=== PATIENT | male | born 1965 | race African-American/Black ===

== ENCOUNTER 2018-02-11 08:39 | Emergency (ER) | payer SELFPAY ==
[2018-02-11] MEDS ORDERED: Ketorolac Tromethamine 60 MG/2 ML VIAL ONE (08:59)
--- NOTE | 2018-02-11 09:53 | RAD ---
FOUR VIEWS LEFT KNEE: DATE: 02/11/18. HISTORY: Left knee pain after falling in a hole. FINDINGS: There is no evidence of a fracture or dislocation. There is a small to moderate size joint effusion. Subcutaneous soft tissue swelling is seen anteriorly at the level of the patellar tendon. IMPRESSION: 1. Moderate-sized joint effusion with soft tissue swelling seen in the region of the patellar tendon . MRI left knee would be helpful for further evaluation. 2. No acute osseous abnormality is seen left knee. POS: [facility]
[2018-02-11] MEDS ORDERED: Lidocaine 1% 20 ML MDV ONE (10:10)
[2018-02-11] MEDS ORDERED: Acetaminophen/Codeine 30-300mg Tablet ONE (10:10)
[2018-02-11 12:43] LABS: BF Color Yellow; Body Fluid Source SYNOVIAL FLUID; Clarity Cloudy/Turbid (Clear); RBC Background Count 0.003; Tube # EDTA; WBC Background Count 0.01
[2018-02-11 12:44] LABS: WBC/NonHematic-Auto 1820 /cumm
[2018-02-11 12:46] LABS: RBC Count-Automated 12000 /cumm
[2018-02-11 14:29] LABS: BF Segmented Neutrophils 44 %; Cell Count Non Hematic 46 %; Lymphocytes 10 %
== END 2018-02-11 11:10 | disposition home or self-care (01) ==
LOC: SCSER 08:39
DX: M25.462 Effusion, left knee (principal); J45.909 Unspecified asthma, uncomplicated; W17.2XXA Fall into hole, initial encounter; Y93.H2 Activity, gardening and landscaping
CPT/HCPCS: 20610; 85060; 89051; 89060; 96372; J1885; J2001

== ENCOUNTER 2019-10-11 18:22 | Emergency (ER) | payer SELFPAY ==
--- NOTE | 2019-10-11 20:19 | RAD ---
Exam: XR Knee Lt 4 View STANDARD HISTORY: Left knee pain after a fall 3 days ago. History of arthritis and gout. COMPARISON: 02/11/2018 FINDINGS: There is a moderate-sized joint effusion seen in the suprapatellar bursa. No acute fracture, dislocation, or other acute osseous abnormality is identified. IMPRESSION: 1. Moderate-sized joint effusion without evidence of a fracture. MRI left knee on a nonemergent basis would be helpful to evaluate for internal derangement.
[2019-10-11] MEDS ORDERED: Ketorolac Tromethamine 60 MG/2 ML VIAL ONE (21:02)
[2019-10-11] MEDS ORDERED: Lidocaine 1% PF 5 ML VIAL ONE (21:31)
[2019-10-11] MEDS ORDERED: HYDROcodone/Acetaminophen 10/325 mg Tablet ONE (22:07)
[2019-10-11 22:31] LABS: RBC Count-Automated (BF) 24413 /cumm; WBC/Nucleated-Auto (BF) 23684 uL
[2019-10-11 22:36] LABS: BF Color Red; Body Fluid Source Synovial Fluid; Clarity Cloudy/Turbid (Clear); Tube # EDTA
[2019-10-11 23:19] LABS: BF Segmented Neutrophils 88 %; Cell Count Non Hematic 12 %
== END 2019-10-12 00:11 | disposition home or self-care (01) ==
LOC: ERS 18:22
DX: M10.9 Gout, unspecified (principal); J45.909 Unspecified asthma, uncomplicated; F17.210 Nicotine dependence, cigarettes, uncomplicated
CPT/HCPCS: 20611; 82945; 85060; 87070; 87205; 89051; 89060; 96372; J1885; J2001

== ENCOUNTER 2021-10-27 00:21 | Emergency (ER) | payer SELFPAY ==
[2021-10-27 01:32] LABS: #Eosinphils 0.3 thou/uL (0.0-0.7); #Lymphocytes 1.4 thou/uL (1.20-3.40); #Monocytes 0.6 thou/uL (0.11-0.59); #Neutrophils 3.9 thou/uL (1.40-6.50); %Basophils 0.7 % (0.0-1.0); %Eosinophils 5.4 % (0.0-10.0); %Monocytes 9.7 % (0.0-10.0); %Neutrophils 62.2 % (42.0-75.0); Hemoglobin 13.9 g/dL (14.0-18.0); Mean Corpuscular HGB CONC 35.1 g/dL (32.0-36.0); Mean Corpuscular Hemoglobin 35.1 pg (27.0-31.0); Mean Corpuscular Volume 99.8 fL (78.0-98.0); Mean Platelet Volume 7.6 fL (7.4-10.4); Platelet Count 202 thou/uL (130-400); RBC Distribution Width 12.4 % (11.5-14.5); Red Blood Cell (RBC) Count 3.97 mill/uL (4.70-6.10); White Blood Cell (WBC) Count 6.3 thou/uL (4.8-10.8)
[2021-10-27 01:59] LABS: ALT (SGPT) 20 U/L (8-55); AST (SGOT) 28 U/L (5-34); Albumin 3.4 g/dL (3.5-5.0); Alkaline Phosphatase 61 U/L (40-110); Anion Gap 18 mmol/L (10-20); BUN (Urea Nitrogen) 14 mg/dL (8.4-25.7); Bilirubin, Total 0.3 mg/dL (0.2-1.2); Calc. Creatinine Clearance 0 mL/min (70-130); Calcium 9.6 mg/dL (7.8-10.44); Carbon Dioxide 16 mmol/L (22-29); Chloride 104 mmol/L (98-107); Globulin 5.1 g/dL (2.4-3.5); Glucose 101 mg/dL (70-105); Potassium 3.7 mmol/L (3.5-5.1); Protein, Total 8.5 g/dL (6.0-8.3); Sodium 134 mmol/L (136-145)
== END 2021-10-27 03:12 | disposition home or self-care (01) ==
LOC: ERS 00:21
DX: J45.901 Unspecified asthma with (acute) exacerbation (principal); M19.90 Unspecified osteoarthritis, unspecified site; Z87.891 Personal history of nicotine dependence
CPT/HCPCS: 36415; 71045; 80053; 83880; 84484; 85025; 93005; 94640; J7620